=== PATIENT | female | born 1935 | race Caucasian/White ===

== ENCOUNTER 2016-03-30 09:00 | Day surgery (SDC) | payer OTHER ==
[2016-03-28 11:48] LABS: HEMOGLOBIN 11.6 g/dL (12.0-16.0); MCH 30.8 PG (27-31); MCHC 32.2 g/dL (33-37); MCV 95.5 FL (81-99); MPV 12.1 FL (7.4-10.4); RBC 3.77 XMIL (4.2-5.4)
[2016-03-30] MEDS ORDERED: LR 1,000 ML ONE (10:12)
[2016-03-30] MEDS ORDERED: KEFZOL 1 GM/D5W 50 ML ONE (10:12)
[2016-03-30] MEDS ORDERED: HEPARIN ONE (11:26)
[2016-03-30] MEDS ORDERED: NS 250 ML ONE (11:26)
[2016-03-30] MEDS ORDERED: MARCAINE 0.25% PF/EPI 1:200,000 ONE (11:26)
[2016-03-30] MEDS ORDERED: XYLOCAINE 1%/EPI 1:100,000 ONE (11:39)
[2016-03-30] MEDS ORDERED: ZOFRAN IV PRN (12:21)
[2016-03-30] MEDS ORDERED: BUPRENEX IV PRN (12:21)
[2016-03-30] MEDS ORDERED: NORCO-7.5 PO PRN (12:21)
[2016-03-30] MEDS ORDERED: DIPRIVAN 1% ONE (12:33)
[2016-03-30] MEDS ORDERED: XYLOCAINE-MPF 2% ONE (12:37)
--- NOTE | 2016-03-30 13:17 | Diag Imaging Result Document ---
PROCEDURE NAME: CHEST-PORTABLE - 03/30/2016 AP PORTABLE CHEST DATED 03/30/2016 AT 1230 HOURS: FINDINGS: There is a right internal jugular central venous port. The tip is in the superior vena cava. The lungs are clear. There are no abnormal fluid collections and there is no evidence of pneumothorax. The heart size is at the upper limits of normal. There are no previous studies. IMPRESSION: No evidence of acute disease.
[2016-03-30] MEDS ORDERED: NORCO-5 ONE (13:49)
[2016-03-30 14:47] VITALS: BP 186/80
--- NOTE | 2016-03-30 15:00 | OPERATIVE NOTE ---
PROCEDURE DATE: 03/30/2016 PREOPERATIVE DIAGNOSIS: Colon cancer. POSTOPERATIVE DIAGNOSIS: Colon cancer. PROCEDURE: Insertion of a Port-a-Cath with fluoroscopic and ultrasound guidance. SURGEON: Reza Mohamud MD ANESTHESIA: General. ESTIMATED BLOOD LOSS: 5 mL. COMPLICATIONS: None apparent. SPECIMENS: None. FINDINGS: The tip of the catheter was positioned to the superior vena cava right atrial junction under fluoroscopy. The right internal jugular vein was [facility] with the [facility], it was compressible and patent. No thrombus was seen. TECHNIQUE: She was brought to the operating room and placed supine on the table. General anesthesia was induced. She was prepped and draped in the usual sterile fashion, 0.25% Marcaine with epinephrine was used to anesthetize our incisions. An incision was made below the right clavicle with a knife. Dissection was carried down through the subcutaneous fat with cautery. A pocket was created anterior to the pectoral fascia with cautery and blunt finger dissection. She was then placed in Trendelenburg. The right internal jugular vein was visualized with the ultrasound. The skin over the vein was anesthetized with the Marcaine. An incision was made in the skin. The vein was then accessed under ultrasound guidance with 1 stick. The wire passed through the needle into the vein. The needle was removed. The wire was confirmed to be in the right atrium with fluoroscopy. The wire was fixed to the drape. The catheter was then tunneled subcutaneously from the lower incision out through the neck incision. The dilator and sheath were then passed over the wire. The wire and dilator were then removed. The catheter was passed into the sheath. The sheath was removed. The tip of the catheter was left at the appropriate junction under fluoroscopy. The catheter was cut to size and fixed to the port. The port was anchored to the fascia with 2-0 Surgipro at 2 o'clock, 6 o'clock, and 10 o'clock. The port was accessed, it daniela back blood easily. It was flushed with heparin saline easily. The incisions were closed with interrupted subcutaneous 3-0 Polysorb and a running 4-0 subcuticular Monocryl, then Steri- Strips. There were no apparent complications. She was awakened in stable condition and transferred to the recovery room where a chest x-ray was ordered.
== END 2016-03-30 14:35 | disposition home or self-care (01) ==
LOC: OPS 09:00
PROVIDERS: ATTEND Surgery
DX: C18.9 Malignant neoplasm of colon, unspecified (principal)
CPT/HCPCS: 71010; 77001; 85027; C1788; J0690; J7050; J7120

== ENCOUNTER 2016-09-06 04:10 | Inpatient (IN) ==
--- NOTE | 2016-09-06 04:20 | PROVIDER DOCUMENTATION ---
HPI-Musculoskeletal Pain/Inj - GENERAL Stated Complaint: fall/ right hip pain Time Seen by Provider: 09/06/16 04:12 Source: patient, EMS - HX OF PRESENT ILLNESS-MUSKULOSKELTAL Nature of Presenting Problem: pt fell yesterday hurting her right hip and has been unable to bear wt on it since. 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 She states she only has pain if she tries to move her right hip. She denies other injuries.She is currently receiviing chemo for colon cancer and had her most recent round 1 day ago Review of Systems - Adult - REVIEW OF SYSTEMS - ADULT Constitutional: reports: fatique. denies: chills, fever Eyes: denies: discharge Ears, Nose, Mouth & Throat: denies: ear pain, sinus problem, throat pain Cardiovascular: reports: edema (chronic and unchanged). denies: chest pain Respiratory: denies: cough, shortness of breath Gastrointestinal: denies: abdominal pain, hematemesis, diarrhea, nausea, rectal bleeding, vomiting Genitourinary: denies: dysuria, flank pain Musculoskeletal: reports: see HPI. denies: back pain, neck pain Integumentary: denies: rash Neurological: denies: headache/migraines, numbness, paresthesia Psychiatric: reports: no symptoms reported Endocrine: reports: no symptoms reported Hematologic/Lymphatic: reports: no symptoms reported Allergic/Immunologic: reports: no symptoms reported All Other Systems: Reviewed and Negative Past History - Adult - PAST MEDICAL HISTORY-ADULT Review of Records: reports: Old Records Reviewed, Nursing Assessment Review, Medications Reviewed, Social history reviewed & non-contributory. Physical Exam-Injury Related - Physical Exam-Injury Related Initial Vital Signs Reviewed: Yes General Appearance: appears well, alert, no apparent distress Eyes: PERRL/EOMI. negative: pink conjunctivae (pale) Head, Ears, Nose, Mouth & Throat: normocephalic/atraumatic, pharynx normal Neck: non-tender, full range of motion, supple, normal inspection Respiratory: chest non-tender, lungs clear, normal breath sounds, no pleuratic chest pain, no respiratory distress, no accessory muscle use Cardiovascular: regular rate, rhythm, no murmur. negative: no edema (1-2 + pitting edema to lower legs bilat) Peripheral Pulses: dorsalis-pedis (R): 3+ Abdominal Exam: normal bowel sounds, non tender, soft, no organomegaly, no pulsatile mass Back Exam: normal inspection, no CVA tenderness, no vertebral tenderness Extremity: negative: non-tender (mild tenderness to palpation of right hip, no leg shortening or external rotation or swelling) Integumentary: warm/dry, pallor. negative: normal color Neurologic: grossly normal, no motor/sensory deficits Psych/Mental Status: normal mood/affect, normal thought content, normal thought process, oriented x 3 Progress - PLAN OF CARE/RESULTS Progress/Plan/Lab Results: Vital Signs - 8 hr 09/06/16 04:20 Temperature 98.7 F Pulse Rate 60 Respiratory Rate 20 Blood Pressure 179/93 O2 Sat by Pulse Oximetry 96 Laboratory Results - last 24 hr 09/06/16 09/06/16 04:26 04:26 WBC 4.34 L RBC 2.08 L Hgb 7.5 L Hct 22.3 L MCV 107.2 H MCH 36.1 H MCHC 33.6 RDW Std Deviation 14.3 Plt Count 120 L MPV 11.6 H Immature Gran % (Auto) 0.7 H Neut % (Auto) 63.6 Lymph % (Auto) 18.2 L Treasure % (Auto) 15.0 H Eos % (Auto) 1.8 Baso % (Auto) 0.7 Immature Gran # (Auto) 0.03 Neut # (Auto) 2.76 Lymph # (Auto) 0.79 L Treasure # (Auto) 0.65 H Eos # (Auto) 0.08 Baso # (Auto) 0.03 Sodium 136 Potassium 4.1 Chloride 101 Carbon Dioxide 25 Anion Gap 10 BUN 30 H Creatinine 1.3 H Estimated GFR/1.73 m2 39 BUN/Creatinine Ratio 23 Glucose 144 H Calculated Osmolality 281 Calcium 9.0 Total Bilirubin 0.75 AST 18 ALT 12 Alkaline Phosphatase 99 Total Protein 6.0 L Albumin 3.6 Globulin 2.4 Albumin/Globulin Ratio 1.5 Orders Category Date Time Status HEAD/C-SPINE W/O CONTRAST [CT] Stat Exams 09/06/16 04:14 Taken HIP 1 VIEW RIGHT [RAD] Stat Exams 09/06/16 04:13 Taken PELVIS W/O CONTRAST [CT] Stat Exams 09/06/16 04:40 Taken CBC WITH ELECTRONIC DIFF [HEME] Stat Lab 09/06/16 04:26 Completed CMP [COMPREHENSIVE METABOLIC PANEL] [CHEM] Stat Lab 09/06/16 04:26 Completed EKG [EKG] Stat Ther 09/06/16 04:20 Ordered Result Diagrams: 09/06/16 04:26 09/06/16 04:26 - EKG 1 Time of EKG reading by physician:: 04:42 EKG Interpretation (*Must complete 3 of following elements*): Abnormal Rate: 58 Rhythm: sinus bruna Conway: left QRS: normal ME Interval: normal ST Wave: normal - XRAY 1 XRAY: Right XRAY Study: Hip Impression: Normal 3 XRAY Study: C-Spine Impression: Normal (DJD) - CT/MRI 1 CT Study: Head Impression: Normal 2 CT Study: Pelvis Impression: Abnormal (right sacral and right pubic symphysis/inferior ramus fx) Departure - Departure Date of Disposition Decision: 09/06/16 Time of Disposition Decision: 05:19 DIAGNOSIS: Pelvic fracture Qualifiers: Encounter type: initial encounter Pelvic bone location: multiple parts Fracture type: closed Fracture alignment: with stable disruption of pelvic ring Qualified Code(s): S32.810A - Multiple fractures of pelvis with stable disruption of pelvic ring, initial encounter for closed fracture Colon cancer Qualifiers: Colon location: unspecified part of colon Qualified Code(s): C18.9 - Malignant neoplasm of colon, unspecified Anemia Qualifiers: Anemia type: unspecified type Qualified Code(s): D64.9 - Anemia, unspecified Disposition: ADMITTED INPATIENT 09 Certified Medical Emergency: Emergent Condition: Fair Referrals and Follow-Ups: Syeda Trevizo MD [Primary Care Provider] - Deon Johnson MD [ACTIVE STAFF PHYSICIAN] - - Critical Care Note This patient required my direct & personal management of CC.: No
[2016-09-06 04:45] LABS: BASO% 0.7 % (0.0-0.8); EOS# 0.08 X1000 (0.0-0.7); EOS% 1.8 % (0.0-10.0); HEMATOCRIT 22.3 % (37.0-47.0); HEMOGLOBIN 7.5 g/dL (12.0-16.0); IMM GRAN# 0.03 X1000 (0.0-0.04); IMM GRAN% 0.7 % (0.0-0.5); LYMPH# 0.79 X1000 (1.2-3.4); LYMPH% 18.2 % (20.5-51.1); MANUAL DIFF NEEDED? NO; MCH 36.1 PG (27-31); MCHC 33.6 g/dL (33-37); MCV 107.2 FL (81-99); MONO# 0.65 X1000 (0.11-0.59); MPV 11.6 FL (7.4-10.4); NEUT% 63.6 % (42.2-75.2); PLT 120 X1000 (130-400); RBC 2.08 XMIL (4.2-5.4)
[2016-09-06 05:02] LABS: ALBUMIN 3.6 g/dL (3.5-5.0); POTASSIUM 4.1 mmol/L (3.5-5.1); TOTAL BILIRUBIN 0.75 mg/dL (0.20-1.00)
--- NOTE | 2016-09-06 05:39 | EKG Report ---
Test Performed on : 09/06/2016 04:32:49 AM Test Reason : fall, syncope Blood Pressure : / mmHG Vent. Rate : 058 BPM Atrial Rate : 058 BPM P-R Int : 170 ms QRS Dur : 106 ms QT Int : 444 ms P-R-T Axes : 048 -33 042 degrees QTc Int : 435 ms Sinus bradycardia. Left axis deviation Abnormal ECG No previous ECGs available Unconfirmed Result
--- NOTE | 2016-09-06 06:07 | HISTORY AND PHYSICAL ---
CHIEF COMPLAINT: Fall, weakness. PRIMARY CARE PHYSICIAN: Dr. Trevizo. HISTORY OF PRESENTING ILLNESS: An 81-year-old female with a history of atrial fibrillation and colon cancer, currently received her last dose of chemo last Sunday. Had presented to the emergency department with a complaint of weakness, and apparently she fell. Family states that she was also getting somewhat confused when this occurred. She was evaluated in the ER. She had imaging done, which did show a pelvic fracture, and due to her presenting symptoms, it was thought that she would need hospitalization for further management. At the time of my examination, she had denied any headache, fever, chills, chest pain, shortness of breath, hemoptysis, or any weight changes, but she states that she feels weak and not well. PAST MEDICAL HISTORY: Includes atrial fibrillation and colon cancer. PAST SURGICAL HISTORY: Colectomy, cholecystectomy, cataract surgery. ALLERGIES: Nexium. CURRENT MEDICATIONS: As listed in the medication reconciliation sheet. SOCIAL HISTORY: She denies any history of smoking alcohol or illicit drug use. FAMILY HISTORY: No history of coronary artery disease. REVIEW OF SYSTEMS: Twelve point review of systems is listed as in HPI. Other systems negative. PHYSICAL EXAMINATION: GENERAL: Cooperative, friendly female. She is resting comfortably. VITAL SIGNS: Temperature 98.7 degrees, pulse 60, respirations 20, blood pressure 179/93. HEENT: Atraumatic, normocephalic, PERRLA. NECK: No masses. CHEST: Clear to auscultation. CARDIOVASCULAR: Regular rate and rhythm. ABDOMEN: Soft. Positive bowel sounds. EXTREMITIES: No edema. NEUROLOGIC: She is awake, alert, oriented x3. GENITOURINARY: No bladder distention. SKIN: Warm. LABORATORIES AND STUDIES: Sodium 136, potassium 4.1, chloride 101, CO2 25, BUN 30, creatinine is 1.3, glucose is 144. WBC 4.34, hemoglobin 7.5, hematocrit 22.3, platelets 120, 000. ASSESSMENT: An 81-year-old female with a history of atrial fibrillation and colon cancer. Had presented to the emergency department after she got weak and fell. She was seen in the ER. Apparently, she was anemic, and due to her presenting symptoms, she will need hospitalization for further management. 1. Fall. 2. Syncopal episode. 3. Pelvic fracture. 4. Symptomatic anemia. 5. History of colon cancer. 6. Atrial fibrillation. PLAN: 1. We will admit patient to medical floor with telemetry. 2. We will continue with orthostatic blood pressure and pulse. 3. Will give patient pain control. 4. We will monitor hemoglobin and hematocrit closely and type and cross 1 unit of packed red blood cells. 5. Will put patient on deep venous thrombosis prophylaxis with sequential compression devices. 6. We will continue to follow and reassess. cc: Roger Xavier MD MTDD
--- NOTE | 2016-09-06 07:00 | Diag Imaging Result Doc PS360 ---
EXAM : HEAD/C-SPINE W/O CONTRAST HISTORY: head injury/pain TECHNIQUE: CT brain without contrast. CT cervical spine without contrast. Dose reduction protocol. COMPARISON: None. FINDINGS: Head: No parenchymal hemorrhage. No epidural or subdural hematoma. No subarachnoid hemorrhage. No mass identified on this noncontrasted exam. No hydrocephalus. Minimal atrophy with minimal microvascular ischemic changes. No sinus opacification. Cervical spine: There is good alignment to the cervical spine. No precervical soft tissue swelling. No subluxation. No fracture. IMPRESSION: Head: No hemorrhage. No injury. Cervical spine: No acute fracture. A preliminary report was given at 5:22 AM. Electronically signed by Jackson Portillo 09/06/2016 6:58 AM
--- NOTE | 2016-09-06 07:06 | Diag Imaging Result Doc PS360 ---
EXAM: PELVIS W/O CONTRAST HISTORY: right hip pain after fall TECHNIQUE: CT pelvis without contrast. Dose reduction protocol. COMPARISON: None. FINDINGS: Neither hip is dislocated. No fracture to either hip. There are fractures to the distal right superior and inferior pubic rami which extend into the pubic symphysis. There are several small displaced fracture fragments. No widening of the pubic symphysis. There are also fractures to the right side of the sacrum extending in the right sacroiliac joint with mild displacement. There is a moderate amount of free fluid within the pelvis. Urinary bladder is distended and appears normal. Uterus is not enlarged. There are scattered diverticula. IMPRESSION: 1.Fractures to the right superior and inferior pubic rami and the right sacrum 2.Moderate amount of free fluid within the pelvis 3.A preliminary report was given at 5:25 AM Electronically signed by Jackson Portillo 09/06/2016 7:04 AM
--- NOTE | 2016-09-06 07:25 | Diag Imaging Result Doc PS360 ---
EXAM: HIP 1 VIEW RIGHT INDICATION: fall TECHNIQUE: One view COMPARISON: None. FINDINGS: There is no discrete fracture, dislocation, or significant intrinsic osseous lesion. The visualized joint spaces are essentially unremarkable. The surrounding soft tissues are essentially unremarkable. IMPRESSION: No evidence of acute osseous abnormality. Electronically signed by Jordin Golden 09/06/2016 7:23 AM
[2016-09-06] MEDS ORDERED: ZOFRAN IV PRN (07:26)
[2016-09-06] MEDS: NS 1,000 ML IV SCH (09:05)
[2016-09-06] MEDS: TAMBOCOR PO SCH ×2 (09:25→22:49)
--- NOTE | 2016-09-06 15:00 | PROGRESS NOTE ---
DATE: 09/06/2016 SUBJECTIVE: Today Ms. Rondon referred to be doing fine. According to the daughter, Ms. 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 About 3 lymph nodes were positive. Had a primary anastomosis subsequently has just done chemo with Dr. Johnson, had her last set of chemo just this past Sunday. According to the daughter, Ms. Rondon has been progressively weaker and excessively sleepy of late. She went to see Dr. Johnson yesterday and was hydrated but then she fell apparently, and tangled her feet and then fell, and she started hurting on the right side. OBJECTIVE: Vital signs: Blood pressure is 173/65, pulse of 57, respiration is 16, temperature is 98.6 degrees. Patient is saturating 100% on room air. General: Ms. Rondon is an 81-year-old female. She is in bed, not seemingly distressed. HEENT: Mucosa is pink, slightly dry. Anicteric. Acyanotic. Neck: Supple. Chest: Clear. Cardiovascular: Regular rate and rhythm. There are no murmurs no rubs, no gallops. Abdomen: Soft, nontender. Extremities: No pedal edema. INSURANCE RISK MANAGER: Patient is awake, alert. DIAGNOSTIC DATA: Lab work: WBC is 4.34, hemoglobin is 7.5, platelet count of 120,000, MCV is 107. Chemistry is reviewed. Creatinine is 1.3, it was 1.5 actually in June. A pelvic CT scan shows fractures to the right superior and inferior pubic rami and the right sacrum, moderate amount of free fluid within the pelvis. ASSESSMENT: 1. Status post fall with fractures to the right superior and inferior pubic rami and right sacrum. Patient has been evaluated by Orthopedics and the plan is just to medically manage. 2. Near-syncope at home, suspicious to be symptomatic anemia. The patient has been given a unit of blood and she seems to be doing fine. 3. Macrocytosis with thrombocytopenia. We will do a B12 level, folate level, and thyroid testing and then we will go from there. 4. Clinical dehydration. We will continue with gentle hydration. 5. Generalized deconditioning. So in general I think Ms. Rondon is stable. She has been transfused. We will recheck on the hemoglobin and hematocrit in the morning. We will continue with the gentle hydration. We will continue with her pain medications. Hopefully get Physical Therapy to work with her from tomorrow. We did talk a little bit about having her go to rehab pending official evaluation from Physical Therapy. We have consulted Social Work for that. cc: Manjinder Live MD MTDD
--- NOTE | 2016-09-06 16:17 | CONSULTATION ---
DATE OF CONSULTATION: 09/06/2016 REASON FOR CONSULT: This patient is known to us with T1, N1, M0 colon adenocarcinoma status post 11 cycles of 5-FU, last on in August 29. HISTORY OF PRESENT ILLNESS: This is a patient who is known to us with a T1, N1 , M0 well- differentiated colon adenocarcinoma status post descending colon resection on February 18, 2016 and has completed adjuvant 5-FU and leucovorin. She completed 11 out of 12 cycles on 08/29/2016. We were not going to proceed with the 12th cycle due to her extreme fatigue. Her last labs were on September 04. Hemoglobin was 9.2, hematocrit was 30. We gave her 1 L normal saline in our clinic yesterday, which she tolerated well, due to some ongoing fatigue and clinical dehydration. Patient reports she slipped and fell last night. She denies any dizziness with the fall or have a blackout episode. Patient complained of having right hip pain. She was brought to the emergency room for further evaluation. A CT of the head and C-spine showed no acute process. However, a CT of the pelvis showed fractures to the right superior and inferior pubic rami and to the right sacrum. She was found to be bradycardic and felt dizzy. They obtained a 12 lead EKG which showed a ventricular rate of 58. Her laboratory data upon admission showed a hemoglobin of 7.5 and hematocrit 22.3. Packed red blood cells have been ordered for her as well as cardiology consult and ortho consult. The patient denies fevers, chills, drenching night sweats, or new abdominal symptoms. REVIEW OF SYSTEMS: Negative unless indicated in HPI. PAST MEDICAL HISTORY: Atrial fibrillation, colon cancer status post chemotherapy and resection, macrocytic anemia, renal insufficiency. ALLERGIES: Nexium. CURRENT MEDICATIONS: They are on the chart. FAMILY/SOCIAL HISTORY: Patient has good family social support. She denies alcohol, illicit drug, or tobacco use. PHYSICAL EXAMINATION: Vital Signs: Stable. Generally: This is a frail- appearing, female, in no acute distress. HEENT: Head is normocephalic, atraumatic. Pupils equal, round, symmetric. Mucous membranes are dry. Cardiovascular: S1, S2 audible to auscultation with no heaves, lifts, thrills. Pulmonary: Breath sounds clear to auscultation. Abdomen: Soft, nondistended. Positive bowel sounds in all 4 quadrants. Neurologic: Alert and oriented x3. Psychiatric: Appropriate to situation. Skin: There is no petechiae or ecchymoses. DIAGNOSTIC DATA: CT of the head and C-spine with no acute processes. CT of the pelvis shows fractures to the distal right superior and inferior pubic rami which extend into the pubic symphysis with fractures to the right side of the sacrum, extending into the right SI joint. WBC 4.34, hemoglobin 7.5, hematocrit 22.3, platelet count 120,000. Sodium 136, potassium 4.1, BUN is 30, creatinine is 1.3. ASSESSMENT AND PLAN: 1. T1, N1, M0 well-differentiated colon adenocarcinoma status post resection and adjuvant chemotherapy. Last chemotherapy on 08/29/2016. 2. Status post fall with fractures to the right superior and inferior pubic rami and right sacrum. Orthopedics have been consulted on this patient. 3. Anemia. Will proceed with 2 units packed red cells and will monitor closely. 4. Deep vein thrombosis prophylaxis with SCDs. 5. Pain management per primary team. 6. Renal insufficiency per primary team. 7. Bradycardia. A 12 lead EKG was performed which showed sinus bruna, HR 58. Cardiology has been consulted. Dictated by BRYANT Irvin for Deon Johnson MD cc: BRYANT Irvin MD [facility]
--- NOTE | 2016-09-06 16:20 | CONSULTATION ---
DATE OF CONSULTATION: 09/06/2016 CHIEF COMPLAINT: Right sacral pain. HISTORY OF PRESENT ILLNESS: This is an 81-year-old female, who fell at home last night, injuring her right hip and groin area. She was seen in the emergency department where she was found to have a fractured pelvis. She is now admitted to the hospitalist for medical evaluation and Orthopedics has been consulted for treatment of fractured right sacral-pelvic area. PAST MEDICAL HISTORY: ALLERGIES: Nexium. SERIOUS ILLNESSES: Atrial fibrillation, hypertension, colon cancer. PAST SURGICAL HISTORY: She has had colon cancer surgery, gallbladder, and a fractured hand. REGULAR MEDICATIONS: They are to be identified later. REVIEW OF SYSTEMS: HEENT: No history of migraines. Family states she have some occasional dizziness. No history of CVA, and family also states she has occasional confusion. Respiratory: No history of asthma, emphysema, shortness of breath. She is nonsmoker. Heart : She has history of atrial fibrillation and mitral regurgitation. [facility]. Abdomen: Has history of controlling her urine and frequent constipation. PHYSICAL EXAMINATION: General: This is an 81-year-old female, somewhat drowsy , but answers questions appropriately. Her primary care physician is Joseline, and she sees Dr. Johnson for her cancer, and the [facility] for her heart [facility]. HEENT: Pupils equal, round , and reactive. Neck: Fair range of motion without adenopathy. Respiratory: Respirations are shallow but clear. No respiratory distress. Heart: Regular rate and rhythm. Abdomen: Soft, bowel sounds are present. Extremities: She has pain in her right hip and her right groin area. She has a history of lower peripheral neuropathy. She usually wears ANDREA hose for this. She states she can walk with a walker but is extremely painful. IMPRESSION: Right superior/inferior rami fracture and Right sacral fracture. PLAN: Consultation with Physical Therapy. Partial weightbearing. She will need to follow up in the office in 2 weeks for follow-up x-ray. Dictated by Donald Olvera RN for Brennan Jimenez MD This chart was documented by the indicated scribe, Donald Olvera RN and accurately reflects the services I performed and decisions made by me, Brennan Jimenez MD, as attested by the provider's signature. cc: Brennan Jimenez MD MTDD
--- NOTE | 2016-09-06 19:55 | ECHO REPORT ---
ORDER DATE: 09/06/2016 INTERPRETING PHYSICIAN: Dr. Leone REQUESTING PHYSICIAN: CLINICAL INDICATIONS: An 81-year-old female with near syncope, history of atrial fibrillation, colon cancer. M-MODE MEASUREMENTS: Right ventricle: 3.2 cm. Left ventricle end diastole: 4.8 cm. Left ventricle end systole: 2.9 cm. Posterior wall: 1.0 cm. Interventricular septum: 1.0 cm. Left atrium: 3.6 cm. Aortic root: 3.6 cm. SUMMARY OF 2-DIMENSIONAL IMAGING: The left ventricle is normal. Ejection fraction estimated to be in the range of 65-70%. No wall motion abnormality is noted. The right ventricle is mildly enlarged. The aortic valve looks normal. Color flow mapping unremarkable. The mitral valve looks normal. Color flow mapping indicates a mild degree of regurgitation. Pulse wave Doppler of mitral inflow shows reversal of the E and the A wave of mild degree. Tissue Doppler of septal and lateral mitral annulus averages 10 cm per second. Pulmonary venous flow is normal. There is no diastolic dysfunction. The tricuspid valve shows a moderate degree of regurgitation. The inferior vena cava is not dilated. Pulmonary pressure is estimated at 68 mmHg. The pulmonic valve looks normal. Color flow mapping unremarkable. There is no pericardial effusion, masses or thrombus. IMPRESSION: In summary, this study shows: 1. Normal left ventricular systolic function. 2. No diastolic dysfunction. 3. Moderate pulmonary hypertension estimated at 68 mmHg. 4. Mild degree of mitral and moderate degree of tricuspid regurgitation. 5. No pericardial effusion noted. Clinical correlation recommended. cc: MD Adeola Finley PA
--- NOTE | 2016-09-06 22:50 | CONSULTATION ---
DATE OF CONSULTATION: 09/06/2016 IMPRESSION: 1. Status post fall related to stumbling without loss of consciousness, with resultant pelvic fracture. 2. Episode of syncope several hours later after getting up to go to the bathroom. This episode likely was provoked by intravascular volume depletion as the patient may have had some internal hemorrhage related to pelvic fracture and also related to increased vagal tone related to pain that she experienced upon standing. Cannot entirely exclude bradyarrhythmia. 3. Paroxysmal atrial fibrillation with likely associated sinus node dysfunction. Patient continues sinus bradycardia on low-dose flecainide and low-dose metoprolol. 4. Colon cancer. Patient is status post resection and had positive nodes. She has recently completed 11 rounds of chemotherapy with 5-FU. Last dose was August 29. 5. Anemia. Hematocrit on September 04 was 30 and hematocrit on admission here is 22. The patient likely has some internal hemorrhage related to pelvic fracture. She is receiving transfusions. 6. No history of coronary disease with stress myocardial perfusion imaging (Lexiscan sestamibi in May this year, negative. Left ventricular systolic function normal. 7. Moderate mitral regurgitation. 8. Hypertension. 9. Advanced age with some early dementia likely. RECOMMENDATIONS: 1. Agree with transfusion. 2. Continue current cardiovascular regimen unchanged with exception of discontinuation of Eliquis pending stabilization in her hematocrit. 3. Continue to monitor on telemetry. HISTORY: This 81-year-old white female with past history of previous episode of atrial fibrillation 4-5 years ago, colon cancer, hypertension, and probable early dementia was admitted following a fall resulting in pelvic fracture and subsequent episode of syncope. She is somewhat sketchy as to the details of her clinical presentation and past history, admittedly has some difficulty with her memory. Her daughter indicates that she had an episode of atrial fibrillation 4-5 years ago. Patient describes associated tachy palpitations that were persistent. She was hospitalized for several days and reportedly had a syncopal spell, after which she had converted back to sinus rhythm. Records are not available. She had been treated at that time with flecainide and metoprolol. She has not been aware of any further palpitations since that time and there has reportedly been no documentation of recurrent atrial fibrillation. Over the past year she started to have problems with memory and had been living independently in [place], [place] up to this point. She moved to the [facility] to be near her daughter. She was also found to have colon cancer and this was resected. She had positive lymph nodes. She has recently undergone 11 rounds of chemotherapy with 5 fluorouracil, the last dose being August 29. She has had poor appetite of late and has been feeling weak since being on chemotherapy. Yesterday evening, she had received some intravenous fluids at Dr. Johnson's office and she was felt to be volume depleted. She had a good meal late yesterday afternoon and went home to go to bed early. Her daughter left her seated in the recliner. The patient relates that she attempted to get up and stumbled on a flip-flop falling to the floor. She denies loss of consciousness. She had some subsequent pain in her pelvis and could not get up. She got her cell phone and called her family. Her daughter came over and found her sitting on the floor in front of the couch. She got her to the bed and allowed her to rest. The patient did not feel like she needed to come to the hospital. In the pit inspector hours, she needed to get to the bathroom. Her daughter assisted her. Upon standing and starting to walk toward the bathroom, she experienced pain. Her daughter relates she momentarily passed out, but her daughter prevented her from falling to the floor. She awoke after she was put back in the bed. She was brought to the hospital for evaluation. X-rays and CT scan demonstrated evidence of pelvic fracture. Hematocrit was 22 whereas previous hematocrit on Sunday was 30. She was in sinus rhythm. Heart rate of 55 to 60 beats per minute. She has received transfusion of 1 unit and there are plans to transfuse another unit of blood. She denies any associated chest pain. She has not had any palpitations. PAST MEDICAL HISTORY: 1. Previous episode of atrial fibrillation 4-5 years ago as noted above. 2. Colon cancer with positive lymph nodes. 3. History of previous uterine bleeding 2 years ago while on Pradaxa. Daughter relates that the dose of Pradaxa may have been excessive. Since then, patient has been on low-dose Eliquis. 4. Hypertension. PAST SURGICAL HISTORY: Partial colectomy, cholecystectomy, and cataract surgery. ALLERGIES: She is allergic or intolerant to Nexium. MEDICATIONS PRIOR TO ADMISSION: Listed. It is noteworthy that she has been on Eliquis 2.5 mg p.o. b.i.d., flecainide 50 mg p.o. b.i.d. and metoprolol succinate 25 mg p.o. daily. SOCIAL HISTORY: She previously lived independently for several years in [place], [place]. She is a . She has since moved to live with her daughter in the [place] area. She does not smoke or use alcohol. FAMILY HISTORY: Negative for coronary disease. REVIEW OF SYSTEMS: Pulmonary: Negative. Gastrointestinal: Negative. Constitutional: Negative beyond history of present illness. Remainder of review of systems negative beyond history present illness with 14 total systems reviewed. PHYSICAL EXAMINATION: General: This is an elderly female in no distress. Vital Signs: Blood pressure 180/66, heart rate 62 and regular. Oxygen saturation 98% on room air. HEENT: Extraocular movements appear intact. Mucous membranes are moist. Neck: Supple without jugular venous distention. There are no carotid bruits. Chest: Clear to auscultation. Cardiac: Reveals a regular rate and rhythm without appreciable murmur or gallop. Abdomen: Soft, nontender. Bowel sounds are normal. Extremities: Demonstrate trace edema with chronic venous stasis changes, right greater than left. Neurologic: Reveals her to be alert and responsive. She is oriented to person, place, time but her memory is spotty in regards to her past medical history and recent events. She moves all 4 extremities equally well. Speech is fluent. ELECTROCARDIOGRAM: EKG demonstrates sinus bradycardia and left axis deviation. Heart rate is 58 beats per minute. cc: Miguel Graves MD
[2016-09-07] MEDS: NS 1,000 ML IV SCH ×2 (06:32→17:29)
[2016-09-07 07:04] LABS: BASO% 0.7 % (0.0-0.8); EOS# 0.12 X1000 (0.0-0.7); EOS% 2.8 % (0.0-10.0); HEMATOCRIT 29.7 % (37.0-47.0); HEMOGLOBIN 9.9 g/dL (12.0-16.0); IMM GRAN# 0.03 X1000 (0.0-0.04); IMM GRAN% 0.7 % (0.0-0.5); LYMPH# 1.09 X1000 (1.2-3.4); LYMPH% 25.6 % (20.5-51.1); MANUAL DIFF NEEDED? YES; MCH 33.4 PG (27-31); MCHC 33.3 g/dL (33-37); MCV 100.3 FL (81-99); MONO# 0.88 X1000 (0.11-0.59); MONO% 20.7 % (1.7-9.3); MPV 11.4 FL (7.4-10.4); NEUT% 49.5 % (42.2-75.2); PLT 109 X1000 (130-400); RBC 2.96 XMIL (4.2-5.4)
[2016-09-07 07:08] LABS: CALCIUM 8.6 mg/dL (8.8-10.2); POTASSIUM 3.7 mmol/L (3.5-5.1)
--- NOTE | 2016-09-07 07:19 | PROGRESS NOTE ---
DATE: 09/07/2016 SUBJECTIVE: Patient is an 81-year-old female who is 1 day status post fall sustaining a right superior inferior rami fracture and right sacral fracture. She is currently resting comfortably. PHYSICAL EXAMINATION: Patient has expected tenderness along palpation throughout right posterior and anterior aspect of the pelvis. Tenderness and generalized discomfort with gentle movement. Calf is soft. She is grossly neurovascularly intact. Has active dorsiflexion and plantar flexion. IMPRESSION: Right superior inferior rami fracture and right sacral fracture. PLAN: At this point, will mobilize with physical therapy if stable from medical standpoint and she will be partial weightbearing right lower extremity. cc: Brennan Jimenez MD
[2016-09-07 07:23] LABS: BANDS 2 % (0-1); EOS 2 % (1-10); LYMPHS 32 % (21-51); MONO 18 % (1-9)
--- NOTE | 2016-09-07 07:37 | EKG Report ---
Test Performed on : 09/07/2016 06:29:43 AM Test Reason : bradycardia Blood Pressure : / mmHG Vent. Rate : 058 BPM Atrial Rate : 058 BPM P-R Int : 194 ms QRS Dur : 106 ms QT Int : 444 ms P-R-T Axes : 059 -36 033 degrees QTc Int : 435 ms Sinus bradycardia. Left axis deviation Abnormal ECG When compared with ECG of 06-SEP-2016 04:32, No significant change was found Confirmed by Manohar Mckinney DO ([id number]) on 09/08/2016 1:31:08 PM
[2016-09-07] MEDS: TAMBOCOR PO SCH ×2 (09:38→21:27)
[2016-09-07] MEDS ORDERED: APRESOLINE IV PRN (11:11)
--- NOTE | 2016-09-07 12:05 | PROGRESS NOTE ---
DATE: 09/07/2016 SUBJECTIVE: This patient states that she is doing fine. 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 She had primary anastomosis and she is following with Dr. Johnson. Her last set of chemotherapy was this past Mondays. She has been weak after the chemotherapy. OBJECTIVE: Vital Signs: Temperature 98.7 degrees, pulse 58, respiratory rate 24, blood pressure 170/63, oxygen saturation 98 on room air. HEENT: Head normocephalic. No trauma. PERRLA. Neck: Supple. No JVD. No masses. Central trachea. Chest: Clear to auscultation. No wheezing. No rales. Abdomen: Soft, nontender, nondistended. No hepatosplenomegaly. Extremities: No edema. No clubbing. No cyanosis. Neurological: The patient is awake and alert. LABORATORY: WBC 4.2, hemoglobin 9.9, hematocrit 29.7, platelets 109,000. Sodium 141, potassium 3.7, chloride 105, bicarbonate 24, BUN 20, creatinine 1, glucose 126, calcium 8.6. ASSESSMENT AND PLAN: 1. Status post fall with fractures to the right superior and inferior pubic rami and right sacrum. This patient has been managed by orthopedic surgery. They recommended to be medically managed and physical therapy. Today I talked to the patient and the daughter and they want to go ahead and go to a rehab center. The order for the social work manager to find a place for her is already placed. 2. Near syncope at home, probably secondary to anemia and/or dehydration. She is doing fine at this moment. She received blood here. Hemoglobin improved. 3. Macrocytosis with thrombocytopenia. Aware. B12 and folate and thyroid level are in the normal range. We will continue to monitor. 4. Clinical dehydration, resolved. This patient is eating good so I will decrease the rate of the IV fluids. 5. Physical deconditioning. Continue with physical therapy. We are looking for placement for this patient. cc: Wyatt Lawler MD
[2016-09-07] MEDS: MORPHINE IV PRN (14:17)
--- NOTE | 2016-09-07 15:19 | PROGRESS NOTE ---
DATE: 09/07/2016 SUBJECTIVE: The patient continues without chest discomfort or dyspnea. She is feeling a little bit stronger. OBJECTIVE: Vital Signs: Blood pressure 170/63, heart rate 58 and regular. Oxygen saturation 98% on room air. Neck: There is no significant jugular venous distention. Chest: Clear to auscultation. Cardiac exam: A regular rate and rhythm without appreciable murmur or gallop. Extremities: Without edema. X-RAYS: Echocardiography reports normal left ventricular ejection fraction. Moderate pulmonary hypertension, mild mitral regurgitation and moderate tricuspid regurgitation. No pericardial effusion. IMPRESSION: 1. Recent syncopal episode following pelvic fracture and likely related to intravascular volume depletion and anemia. Cannot entirely exclude bradycardia contributing to tendency for syncope. 2. Paroxysmal atrial fibrillation with likely associated sinus node dysfunction. Patient continues sinus bradycardia on low-dose flecainide. Metoprolol has been interrupted. 3. Colon cancer. Patient is status post resection and had positive nodes. She was recently treated with 11 rounds of chemotherapy with 5-FU, the last being on August 29. 4. Anemia. Patient has been transfused. 5. Status post recent fall with resultant pelvic fracture. RECOMMENDATIONS: 1. Continue to monitor on telemetry. 2. Resume low-dose Eliquis when acceptable from a standpoint of her noncardiac issues. 3. DVT prophylaxis with SCDs. cc: Miguel Graves MD
[2016-09-08 06:24] LABS: MANUAL DIFF NEEDED? NO
[2016-09-08 06:33] LABS: BASO% 0.7 % (0.0-0.8); EOS# 0.14 X1000 (0.0-0.7); EOS% 2.6 % (0.0-10.0); HEMATOCRIT 29.1 % (37.0-47.0); HEMOGLOBIN 9.8 g/dL (12.0-16.0); IMM GRAN# 0.03 X1000 (0.0-0.04); IMM GRAN% 0.5 % (0.0-0.5); MCH 33.9 PG (27-31); MCHC 33.7 g/dL (33-37); MCV 100.7 FL (81-99); MONO# 1.05 X1000 (0.11-0.59); MONO% 19.1 % (1.7-9.3); MPV 11.1 FL (7.4-10.4); NEUT% 57.1 % (42.2-75.2); PLT 118 X1000 (130-400); RBC 2.89 XMIL (4.2-5.4)
[2016-09-08] MEDS: VICON-C PO SCH (08:56)
[2016-09-08] MEDS: THERA M PLUS PO SCH (08:56)
[2016-09-08] MEDS: TAMBOCOR PO SCH ×2 (08:56→22:01)
[2016-09-08] MEDS ORDERED: VITAMIN B COMPLEX PO SCH (09:00)
[2016-09-08] MEDS ORDERED: MIRALAX PO SCH (09:00)
[2016-09-08] MEDS ORDERED: NON-FORMULARY MED (Multivitamin [Multivitamins] 1 EACH) PO SCH (09:00)
[2016-09-08] MEDS: NS 1,000 ML IV SCH (10:34)
--- NOTE | 2016-09-08 11:32 | Diag Imaging Result Doc PS360 ---
EXAM: CHEST-PORTABLE HISTORY: retirement placement TECHNIQUE: Single view of the chest was performed portably. COMPARISON: 03/30/2016 FINDINGS: The cardiomediastinal silhouette is within normal limits. The pulmonary vasculature is not congested. No infiltrate, effusion, or pneumothorax is appreciated. There is a right portacatheter. IMPRESSION: No acute cardiopulmonary abnormality is identified. Electronically signed by Gloria Martinez 09/08/2016 11:30 AM
[2016-09-08] MEDS: MIRALAX PO PRN (15:14)
--- NOTE | 2016-09-08 16:21 | PROGRESS NOTE ---
DATE: 09/08/2016 SUBJECTIVE: Patient reports feeling fine. Reports mild pain when she moves but at rest she is not complaining of anything. OBJECTIVE: Vital Signs: Temperature 98.8 degrees, heart rate 71, respiratory rate 18, blood pressure 165/82, O2 saturation 97% on room air. General Examination: This is an 81-year-old female lying in bed, in no acute distress. HEENT: Normocephalic, atraumatic. Anicteric sclerae and pale conjunctivae. Mucous membranes moist. Neck: Supple. No JVD is noted. No carotid bruits. No lymphadenopathy. No thyromegaly. Cardiovascular: S1, S2 heard. No murmurs, gallops, or rubs. Regular rate and rhythm. Respiratory: Clear bilaterally to auscultation. No work of breathing or using accessory muscles. Abdomen: Soft, nontender to palpation. Bowel sounds present. No organomegaly. Extremities: No clubbing, cyanosis, or edema. Peripheral pulses present in both legs. Neurological: Patient 4 extremities. Cranial nerves 2-12 grossly normal. LABORATORY DATA: Reviewed. ASSESSMENT AND PLAN: 1. Status post fall with fractures to the right superior and inferior pubic rami and right sacrum. Orthopedic Surgeon has recommended no surgical approach and he needs to be sent to rehab facility. early childhood worker aware of this point, and working in the case. 2. Near-syncope at home. Patient is more stable. 3. Paroxysmal atrial fibrillation. Dr. Graves from Cardiology has been following this patient. By now, they are following this patient. 4. Thrombocytopenia. Aware. B12 and folate in normal range. We will continue to monitor. 5. Physical deconditioning. Patient work with physical therapy. 6. Disposition. Patient going to rehab facility when there is a bed for her. cc: Linwood Wells MD
--- NOTE | 2016-09-08 19:02 | PROGRESS NOTE ---
DATE: 09/08/2016 SUBJECTIVE: The patient continues without chest discomfort or dyspnea. She got up with physical therapy earlier today. She is eating without difficulty. OBJECTIVE: Vital Signs: Blood pressure 165/82, heart rate 71 and regular with ECG monitor showing sinus rhythm. There is no significant jugular venous distention. Chest: Clear to auscultation. Cardiac Exam: Reveals a regular rate and rhythm without appreciable murmur or gallop. There is no evidence of peripheral edema. LABORATORY DATA: Includes hematocrit 29.1, white blood cell count 5.5. IMPRESSION: 1. Recent syncopal episode following pelvic fracture and likely related to intravascular volume depletion and anemia. 2. Paroxysmal atrial fibrillation with likely associated sinus node dysfunction. Patient continues in sinus rhythm on low-dose flecainide. 3. Colon cancer. Patient is status post resection and positive nodes. She was recently treated with 11 rounds of chemotherapy with 5-FU, the last being on August 29. 4. Anemia following recent chemotherapy. Patient did have drop from hematocrit of 30 to hematocrit of 22 in a short period of time at time of admission. The patient is stable status post recent transfusion. 5. Status post recent fall without loss of consciousness with associated pelvic fracture. Concerned about some degree of gait instability although weakness and anemia may have played a significant role. RECOMMENDATIONS: 1. Resume very low-dose metoprolol. 2. Consider possibility resuming low-dose Eliquis as tolerated when acceptable from a standpoint of her noncardiac issues. 3. Continue DVT prophylaxis with SCDs. cc: Miguel Graves MD
[2016-09-08] MEDS: TOPROL XL PO SCH (22:01)
[2016-09-09 05:47] LABS: MANUAL DIFF NEEDED? NO
[2016-09-09 05:55] LABS: BASO% 0.4 % (0.0-0.8); EOS# 0.22 X1000 (0.0-0.7); EOS% 4.1 % (0.0-10.0); HEMATOCRIT 28.5 % (37.0-47.0); HEMOGLOBIN 9.7 g/dL (12.0-16.0); IMM GRAN# 0.02 X1000 (0.0-0.04); IMM GRAN% 0.4 % (0.0-0.5); LYMPH# 1.01 X1000 (1.2-3.4); LYMPH% 18.9 % (20.5-51.1); MCH 34.3 PG (27-31); MCV 100.7 FL (81-99); MONO# 0.99 X1000 (0.11-0.59); MONO% 18.5 % (1.7-9.3); MPV 11.1 FL (7.4-10.4); NEUT% 57.7 % (42.2-75.2); PLT 125 X1000 (130-400); RBC 2.83 XMIL (4.2-5.4)
[2016-09-09 06:03] LABS: CALCIUM 8.2 mg/dL (8.8-10.2); POTASSIUM 4.2 mmol/L (3.5-5.1)
[2016-09-09] MEDS: TAMBOCOR PO SCH ×2 (10:06→20:47)
[2016-09-09] MEDS: VICON-C PO SCH (10:07)
[2016-09-09] MEDS: THERA M PLUS PO SCH (10:07)
[2016-09-09] MEDS: TOPROL XL PO SCH (10:07)
[2016-09-09] MEDS: MORPHINE IV PRN (10:42)
[2016-09-09 11:04] LABS: URINE CULTURE NEEDED? NO; URINE MICRO REVIEW NEEDED? NO; URINE SOURCE CATH
[2016-09-09 11:09] LABS: BILIRUBIN URINE NEGATIVE (NEGATIVE); BLOOD URINE NEGATIVE (NEGATIVE); COLOR YELLOW; GLUCOSE URINE NEGATIVE (NEGATIVE); LEUKOCYTES URINE NEGATIVE (NEGATIVE); NITRITE URINE NEGATIVE (NEGATIVE); PROTEIN URINE NEGATIVE (NEGATIVE); SP GRAVITY URINE 1.004; TURBIDITY URINE CLEAR (CLEAR); UROBILINOGEN URINE NORMAL (NORMAL)
[2016-09-09 11:10] LABS: UR EPITHELIAL CELLS <10 /HPF (<10); URINE BACTERIA NEGATIVE /HPF; URINE RBC <10 /HPF (<10); URINE WBC <10 /HPF (<10)
--- NOTE | 2016-09-09 14:52 | PROGRESS NOTE ---
DATE: 09/09/2016 SUBJECTIVE: Patient reports feeling fine. She reports that pain medications have been readjusted and since then she is doing much better. OBJECTIVE: Vital Signs: Temperature 98.4 degrees, heart rate 63, respiratory rate 22, blood pressure 153/66. O2 saturation 95% on room air. General: This is an 81-year- old female lying in bed in no acute distress. HEENT: Head is normocephalic and atraumatic. Anicteric sclerae and pale conjunctivae. Mucous membranes moist. Neck supple. No JVD noted. No carotid bruits. No lymphadenopathy. No thyromegaly. Cardiovascular: S1 and S2 heard. No murmurs, gallops, or rubs. Regular rate and rhythm. Respiratory: Clear bilaterally to auscultation. No work of breathing or using accessory muscles. Abdomen soft, nontender to palpation. Bowel sounds present. No organomegaly. Extremities: No clubbing, cyanosis, or edema. Peripheral pulses present in both legs. Neurologic: Patient is alert and oriented x3. Able to move 4 extremities. Cranial nerves 2-12 grossly normal. LABORATORY DATA: Reviewed. ASSESSMENT AND PLAN: 1. Status post fall with fractures of the right superior and inferior pubic rami and right sacrum. Orthopedic Surgeon has recommended no surgical approach of these fractures and recommend physical therapy with placement on a rehab facility. Glass Technician aware at this point, and we are basically waiting for a bed in a rehab facility. 2. Near-syncope at home. Patient has not had any more episodes of syncope here in the hospital. 3. Paroxysmal atrial fibrillation. The patient is in sinus rhythm. Dr. Graves from cardiology is following this patient, and he recommends to receive very low doses of metoprolol, and we may also consider the possibility of resuming low-dose Eliquis. At this point, we will continue with the same management. 4. Thrombocytopenia, aware. Actually, the platelet count is 125,000. 5. Physical deconditioning. Patient is working with physical therapy. DISPOSITION: The patient is going to a rehab facility when there is a bed for her. cc: Linwood Wells MD MTDD
[2016-09-09] MEDS: MIRALAX PO PRN (17:58)
[2016-09-10 06:46] LABS: MANUAL DIFF NEEDED? NO
[2016-09-10 06:50] LABS: BASO% 0.4 % (0.0-0.8); EOS# 0.26 X1000 (0.0-0.7); EOS% 5.5 % (0.0-10.0); HEMOGLOBIN 10.9 g/dL (12.0-16.0); IMM GRAN# 0.03 X1000 (0.0-0.04); IMM GRAN% 0.6 % (0.0-0.5); LYMPH# 0.95 X1000 (1.2-3.4); LYMPH% 20.2 % (20.5-51.1); MCH 34.3 PG (27-31); MCHC 34.1 g/dL (33-37); MCV 100.6 FL (81-99); MONO# 0.91 X1000 (0.11-0.59); MONO% 19.4 % (1.7-9.3); MPV 10.7 FL (7.4-10.4); NEUT% 53.9 % (42.2-75.2); PLT 134 X1000 (130-400); RBC 3.18 XMIL (4.2-5.4)
[2016-09-10 07:17] LABS: CALCIUM 8.4 mg/dL (8.8-10.2); POTASSIUM 4.2 mmol/L (3.5-5.1)
[2016-09-10] MEDS: THERA M PLUS PO SCH (10:01)
[2016-09-10] MEDS: VICON-C PO SCH (10:01)
[2016-09-10] MEDS: TOPROL XL PO SCH (10:01)
[2016-09-10] MEDS: TAMBOCOR PO SCH ×2 (10:01→21:59)
[2016-09-10] MEDS: MIRALAX PO PRN ×2 (10:02→18:33)
[2016-09-10] MEDS: NS 1,000 ML IV SCH ×2 (10:02→10:26)
--- NOTE | 2016-09-10 16:35 | PROGRESS NOTE ---
DATE: 09/10/2016 SUBJECTIVE: Patient reports feeling fine. She has been working with physical therapy this morning. No complaints. OBJECTIVE: Vital Signs: Temperature 98.1 degrees, heart rate 62, respiratory 21, blood pressure 165/74, O2 saturation 96% on room air. General: On examination, this is a 89-year-old female lying in bed, in no acute distress. HEENT: Head is normocephalic, atraumatic. Anicteric sclerae and pale conjunctivae. Mucous membranes moist. Neck: Supple. No JVD noted. No carotid bruits. No lymphadenopathy. No thyromegaly. Cardiovascular: S1, S2 heard. No murmurs, gallops, or rubs. Regular rate and rhythm. Respiratory: Clear bilaterally to auscultation. No work of breathing or using accessory muscles. Abdomen: Soft, nontender to palpation. Bowel sounds present. No organomegaly. Extremities: No clubbing, cyanosis, or edema. Peripheral pulses present in both legs. Neurological: Patient alert and oriented x3. Moves 4 extremities. LABORATORY DATA: Reviewed. ASSESSMENT AND PLAN: 1. Status post fall with fracture of the right superior and inferior pubic rami and right sacrum. Orthopedic Surgery has recommended nonsurgical approach with these fractures. The patient is supposed to be sent to rehab facility. link trainer maintenance worker aware and basically we are waiting for a bed. 2. Near-syncope at home. No more episodes of syncope here in the hospital. 3. Paroxysmal atrial fibrillation. Patient is in sinus rhythm. Dr. Graves from Cardiology is following this patient. 4. Thrombocytopenia, aware. 5. Physical deconditioning. Patient is working with physical therapy. cc: Linwood Wells MD
--- NOTE | 2016-09-10 17:59 | PROGRESS NOTE ---
DATE: 09/10/2016 SUBJECTIVE: Patient continues without chest discomfort or dyspnea on room air. OBJECTIVE: Vital signs: Blood pressure 165/74, heart rate 62 and regular, oxygen saturation 96% on room air. Neck: There is no significant jugular venous distention. Chest: Clear to auscultation. Cardiac exam: Reveals a regular rate and rhythm without appreciable murmur or gallop. There is no evidence of peripheral edema. LABORATORY DATA: Includes hematocrit 32, white blood cell count 4.7, BUN 20, creatinine 1.0, potassium 4.2. IMPRESSION: 1. Paroxysmal atrial fibrillation with likely associated sinus node dysfunction. Patient continues in sinus rhythm on low-dose flecainide. 2. Colon cancer. Patient is status post resection and had positive nodes. She was recently treated with 11 rounds of chemotherapy with 5 fluorouracil the last being on August 29. 3. Anemia following recent chemotherapy. Patient did have significant drop in hematocrit from 30 to 22 in short period of time and has been transfused. 4. Status post recent fall without loss of consciousness, associated pelvic fracture. Concerned about some degree of gait instability although weakness and anemia may have played a significant role. 5. Status post syncopal episode following pelvic fracture likely related to intravascular volume depletion and anemia. RECOMMENDATIONS: 1. Continue current cardiovascular regimen unchanged. 2. Consider the possibility resuming low-dose Eliquis as tolerated when acceptable from noncardiac standpoint. cc: Miguel Graves MD
[2016-09-11 07:05] LABS: CALCIUM 9.1 mg/dL (8.8-10.2); POTASSIUM 4.7 mmol/L (3.5-5.1)
[2016-09-11] MEDS ORDERED: ULTRAM PO PRN (09:41)
[2016-09-11] MEDS: VICON-C PO SCH (10:13)
[2016-09-11] MEDS: TOPROL XL PO SCH (10:13)
[2016-09-11] MEDS: THERA M PLUS PO SCH (10:13)
[2016-09-11] MEDS: TAMBOCOR PO SCH (10:13)
[2016-09-11] MEDS: NS 1,000 ML IV SCH (10:28)
[2016-09-11 13:53] VITALS: BP 127/63
--- NOTE | 2016-09-11 14:29 | DISCHARGE SUMMARY ---
ADMISSION DATE: 09/08/2016 DISCHARGE DATE: CONSULTATIONS: 1. Brennan Jimenez MD with Orthopedics. 2. Deon Johnson MD with Hematology. 3. Miguel Graves MD with Cardiology. PERTINENT PROCEDURES: 1. Hip x-ray showed no evidence of acute osseous abnormality. 2. Head cervical spine CT showed no hemorrhage, no injury. Cervical spine no acute fracture. 3. Pelvis CT showed fractures to the right superior and inferior pubic ramus and the right sacrum. Moderate amount of free fluid within the pelvis. 4. Echocardiogram showed ejection fraction of 65-70%. DISCHARGE DIAGNOSES: 1. Status post fall with fractures to the right superior and inferior pubic rami and right sacrum. The patient is evaluated by orthopedics. Plan is to manage medically. The patient will be discharged to rehab. 2. Near syncope at home. Suspicious for symptomatic anemia. The patient has been transfused with 2 units of packed red blood cells. Followed by Hematology/Oncology. 3. Microcytosis with thrombocytopenia. 4. The patient is being followed by Hematology/Oncology. 5. Clinical dehydration, resolved with intravenous fluids. 6. Paroxysmal atrial fibrillation, most likely associated with sinus node dysfunction. The patient continues to be in sinus rhythm on low-dose flecainide. Followed by Cardiology. 7. T1-N1-M0 well-differentiated colon adenocarcinoma, status post resection and chemotherapy. Last chemotherapy was on 08/29/2016. This was her 11th out of 12th cycle. They are not going to proceed with the 12th cycle due to her extreme fatigue. She will continue to followup with Hematology/Oncology after discharge. HOSPITAL COURSE: Ms. Rondon is an 81-year-old female with a history of atrial fibrillation and colon cancer. Last received her chemo dose on 08/29/2016. The day before her admission she was given a 1 L normal saline bolus at Dr. Johnson's clinic, which she tolerated well. She was given that secondary to ongoing fatigue and clinical dehydration. The patient reported that she slipped and fell at home. She complained of weakness. Family stating she was getting somewhat confused at the time when the fall occurred. Imaging done in the emergency department revealed a pelvic fracture. Her hemoglobin and hematocrit was 7 and 22. She was admitted to the medical telemetry floor and transfused with 1 unit of blood, with an Orthopedic and Hematology/ Oncology consult. Orthopedic's plan is to medically manage and followup with them in 2 weeks for repeat x-rays. Continue to work with physical therapy. Her blood counts improved after transfusion. [facility] was consulted for rehab placement. Cardiology has also been following along. Her Xarelto was discontinued due to her low blood counts. The patient has had several EKG showing sinus bradycardia. He recommended to continue her flecainide and went okay from a noncardiac standpoint to resume her Eliquis. The patient does have it today at rehab. VITAL SIGNS: Temperature is 98.1 degrees, heart rate 63, respirations 18, blood pressure 157/66. O2 is 96% on room air. DISCHARGE DIET: Regular with boost 3 times a day. DISCHARGE MEDICATIONS: As per Dr. Zuniga. Please see APR. FOLLOWUP: Ms. Rondon is being discharged to rehab today. She will continue to followup with Dr. Johnson and will follow up with Dr. Jimenez in 2 weeks for repeat x-rays. She will return to the ED for any worsening of symptoms. DISCHARGE TIME: Was 35 minutes. Dictated by BRYANT England for Linwood Wells MD cc: Linwood Wells MD MTDD
== END 2016-09-11 17:17 ==
LOC: ED 04:10 → EDIPHOLD 04:10 → SUATTDRO 08:07 → 3N 12:44
PROVIDERS: ATTEND Internal Medicine